=== PATIENT | male | born 1950 | race Caucasian/White ===

== ENCOUNTER → 2021-01-05 14:52 | Outpatient (BNVA) | payer MEDICARE, SELFPAY | PROVIDERS: PCP Specialist; Visit Provider Internal Medicine | DX: J45.909 Unspecified asthma, uncomplicated (principal) | CPT/HCPCS: 99212 ==

== ENCOUNTER 2021-01-26 07:44 | Outpatient (REF) | payer MEDICARE, SELFPAY ==
--- NOTE | 2021-01-26 17:30 | PFT_ITS ---
FLOWS: FEV1 59% of predicted at 1.98 L. FVC 66% of predicted at 2.99 L. FEV1 to FVC ratio of 0.66. No bronchodilation performed. This patient has used his albuterol several hours prior to the test. LUNG VOLUMES: Total lung capacity 88% of predicted at 6.36 L. Residual volume 144% of predicted at 3.67 L. Slow vital capacity 57% of predicted at 2.69 L. Expiratory reserve volume 33% of predicted at 0.44 L. Diffusion capacity is mildly decreased, diffusion capacity corrects to normal after adjustment for alveolar ventilation. IMPRESSION: Moderate obstructive ventilatory defect. No bronchodilator testing was performed. This patient has used his albuterol several hours prior to testing. Increased residual volume suggests air trapping. Decreased expiratory reserve volume suggests extrathoracic restriction, likely secondary to abdominal obesity. Naga Gary MD AP/MODL / [id number]
== END 2021-01-26 07:45 | disposition home or self-care (01) ==
LOC: HO.RESP 07:44
PROVIDERS: PCP Specialist; Visit Provider Internal Medicine
DX: J45.909 Unspecified asthma, uncomplicated (principal)
CPT/HCPCS: 94010; 94727; 94729

== ENCOUNTER → 2021-12-27 10:32 | Outpatient (BNVA) | payer MEDICARE, SELFPAY | PROVIDERS: PCP Specialist; Visit Provider Internal Medicine | DX: J44.9 Chronic obstructive pulmonary disease, unspecified (principal) | CPT/HCPCS: 99212 ==